=== PATIENT | male | born 1980 ===

== ENCOUNTER 2017-01-11 00:16 | Emergency (ER) | payer SELFPAY ==
[2017-01-11 00:26] VITALS: RESP 16
--- NOTE | 2017-01-11 00:55 | ED PDOC ---
HPI: Abdomen Time Seen by Provider: 01/11/17 00:29 Chief Complaint (Nursing): Abdominal Pain Chief Complaint (Provider): LLQ pain History Per: Patient History/Exam Limitations: no limitations Onset/Duration Of Symptoms: Days (1) Outside of [place] travel?: No Current Symptoms Are (Timing): Still Present Location Of Pain/Discomfort: LLQ Additional History Per: Patient Additional Complaint(s): The patient is a 36yo male, presents to the ED for evaluation of LLQ pain, present for the past day which started in the afternoon. Patient reports the pain has been constant and is associated with some dysuria. Patient denies any fever, chills, nausea, vomiting, abnormal bowel movements, back pain, testicular pain or discharge. Patient offers no additional medical complaints. Past Medical History Reviewed: Historical Data, Nursing Documentation, Vital Signs Vital Signs: Last Vital Signs Temp 97.7 F 01/11/17 00:24 Pulse 69 01/11/17 00:24 Resp 16 01/11/17 00:24 BP 136/75 01/11/17 00:24 Pulse Ox 99 01/11/17 01:02 - Medical History PMH: No Chronic Diseases - Surgical History Surgical History: No Surg Hx - Family History Family History: States: No Known Family Hx - Home Medications Home Medications: Ambulatory Orders Medication Instructions Recorded Dicyclomine [Bentyl] 10 mg PO QID #30 cap 01/11/17 - Allergies Allergies/Adverse Reactions: Allergies Allergy/AdvReac Type Severity Reaction Status Date / Time No Known Allergies Allergy Verified 01/11/17 00:26 Review of Systems ROS Statement: Except As Marked, All Systems Reviewed And Found Negative Constitutional: Negative for: Fever, Chills Gastrointestinal: Positive for: Abdominal Pain. Negative for: Nausea, Vomiting Genitourinary Male: Positive for: Dysuria Physical Exam - Reviewed Nursing Documentation Reviewed: Yes Vital Signs Reviewed: Yes - Physical Exam Appears: Positive for: Well, Non-toxic, No Acute Distress Head Exam: Positive for: ATRAUMATIC, NORMAL INSPECTION, NORMOCEPHALIC Skin: Positive for: Normal Color, Warm, DRY Eye Exam: Positive for: Normal appearance Neck: Positive for: Normal, Supple Cardiovascular/Chest: Positive for: Regular Rate, Rhythm Respiratory: Positive for: Normal Breath Sounds. Negative for: Respiratory Distress Gastrointestinal/Abdominal: Positive for: Normal Exam, Soft. Negative for: Tenderness Male Genital Exam: Negative for: testicular tenderness (R), testicular tenderness (L) Extremity: Positive for: Normal ROM. Negative for: Deformity, Swelling Neurologic/Psych: Positive for: Alert, Oriented. Negative for: Motor/Sensory Deficits - Laboratory Results Result Diagrams: 01/11/17 00:59 01/11/17 00:59 - ECG O2 Sat by Pulse Oximetry: 99 (RA) Pulse Ox Interpretation: Normal Medical Decision Making Medical Decision Making: Time: 44 Impression: Possible inguinal hernia vs. UTI Plan: -- CMp -- CBC -- Toradol 15 mg IVP -- Urinalysis -- US Abdomen Reassess Time: 355 US Abdomen IMPRESSION: 1. No acute findings. Patient reports feeling much better and is stable for discharge home. Patient advised to follow up with PCP in 1-2 days. Scribe Attestation: Documented by Gosia Hand acting as a scribe for Nelson Horowitz MD. Provider Attestation: All medical record entries made by the Scribe were at my direction and personally dictated by me. I have reviewed the chart and agree that the record accurately reflects my personal performance of the history, physical exam, medical decision making, and the department course for this patient. I have also personally directed, reviewed, and agree with the discharge instructions and disposition. Disposition - Clinical Impression Clinical Impression: Abdominal pain - Disposition [facility]errals: [facility] [[facility]] Disposition: Routine/Home Disposition Time: 04:00 Condition: STABLE Prescriptions: Dicyclomine [Bentyl] 10 mg PO QID #30 cap Instructions: Acute Abdominal Pain (DC) Forms: [employer] (Bel[place]ian) Print Language: [id number]
[2017-01-11 01:05] LABS: BASO % 0.4 % (0.0-2.0); EOS # 0.2 K/uL (0.0-0.7); EOS % 2.4 % (0.0-4.0); HEMATOCRIT 39.5 % (35.0-51.0); LYMPH # 1.6 K/uL (1.0-4.3); LYMPH % 16.5 % (20.0-40.0); MEAN CELL VOLUME 92.3 fl (80.0-94.0); MEAN CORPUSCULAR HGB CONC 33.6 g/dL (33.0-37.0); MEAN PLATELET VOLUME 7.5 fl (7.2-11.7); MONO # 0.6 K/uL (0.0-0.8); MONO % 6.3 % (0.0-10.0); NEUT # 7.1 K/uL (1.8-7.0); NEUT % 74.4 % (50.0-75.0); RED CELL DISTRIBUTION WIDTH 13.1 % (11.5-14.5); WHITE BLOOD COUNT 9.5 K/uL (4.8-10.8)
[2017-01-11 01:10] LABS: ALB/GLOB RATIO 1.6 (1.0-2.1); ALKALINE PHOSPHATASE 122 U/L (38-126); ALT/SGPT 48 U/L (21-72); AST/SGOT 33 U/L (17-59); BILIRUBIN,TOTAL 0.9 mg/dl (0.2-1.3); BLOOD UREA NITROGEN 20 mg/dl (9-20); CALCIUM 8.7 mg/dL (8.4-10.2); CARBON DIOXIDE 26 mmol/L (22-30); CHLORIDE 102 mmol/L (98-107); GFR AFRICAN-AMERICAN > 60; GLUCOSE,RANDOM 107 mg/dL (75-110); POTASSIUM 3.5 MMOL/L (3.6-5.0); SODIUM 137 mmol/l (132-148); TOTAL PROTEIN 6.9 G/DL (6.3-8.2)
[2017-01-11 01:12] LABS: RBC URINE < 1 /hpf (0-3); URINE BILIRUBIN NEGATIVE (NEGATIVE); URINE BLOOD NEGATIVE (NEGATIVE); URINE COLOR YELLOW (YELLOW); URINE GLUCOSE (UA) NEG (Normal); URINE KETONE NEGATIVE (NEGATIVE); URINE LEUKOCYTE ESTERASE NEG Leu/uL (Negative); URINE PROTEIN NEGATIVE (NEGATIVE); URINE UROBILINOGEN 0.2-1.0 mg/dL (0.2-1.0); WBC URINE < 1 /hpf (0-5)
--- NOTE | 2017-01-11 03:56 | US ---
EXAM: US Abdomen Limited CLINICAL HISTORY: 36 years old, male; Pain; Abdominal pain; Other: Llq pain; Additional info: Llq pain, R/O hernia TECHNIQUE: Real-time ultrasound of the LEFT lower quadrant (limited) with image documentation. COMPARISON: No relevant prior studies available. FINDINGS: Soft tissues: No hernia. No mass. Free fluid: No fluid collection. IMPRESSION: 1.No acute findings.
[2017-01-11 04:23] VITALS: BP 122/76; PULSE 72; TEMP 98.2; O2SAT 98
== END 2017-01-11 04:23 | disposition home or self-care (01) ==
LOC: H.ER 00:16
DX: R10.32 Left lower quadrant pain (principal)
CPT/HCPCS: 76705; 80053; 81003; 85025; 96374; 99283; J1885